=== PATIENT | female | born 1965 | race Caucasian/White ===

== ENCOUNTER 2019-04-18 08:59 | Outpatient (CLI) | payer BC, SELFPAY ==
[2019-04-19 09:42] LABS: FSH 116.4 mIU/mL (See Note)
== END 2019-04-18 09:19 ==
PROVIDERS: PCP Family Medicine; Visit Provider Nurse Practitioner Women's Health
DX: N95.1 Menopausal and female climacteric states (principal)
CPT/HCPCS: 36415; 83001

== ENCOUNTER 2019-04-18 09:41 | Outpatient (REF) | payer BC, SELFPAY ==
--- NOTE | 2019-04-18 08:50 | PAPFT_PTH ---
PATIENT: Romana Hilton LOC: [facility] U#:[id number] AGE/SX: 53/F ROOM: RE04/18/[address]: Karina Patino NP : 1965 BED: DIS: 04/18/2019 SPEC #: [id number] RECD: 04/18/19 12:49 STATUS: KELLY REPrema #: [id number] DEREK: 04/18/19 08:[address]: Karina Patino NP DEPT: [facility] Cytology RECD BY: Annie Dickson ENTERED: 04/18/19 12:49 SP TYPE: PAPFT OTHR DR: Guanako Gutierrez Tissues: 1 - CX/ENDOCX FOR PAP SMEARS Procedures: PAP THIN PREP/[facility] Screening HPV DNA PROBE Comments: [id number] (CHLAMYDIA/GC)
[2019-04-19 16:41] LABS: Chlamydia Result Negative (Negative); GC Result Negative (Negative)
== END 2019-04-18 10:01 ==
LOC: LBN 09:41
PROVIDERS: PCP Family Medicine; Visit Provider Nurse Practitioner Women's Health
DX: Z12.4 Encounter for screening for malignant neoplasm of cervix (principal); Z11.51 Encounter for screening for human papillomavirus (HPV)
CPT/HCPCS: 87491; 87591; 88142; 87624

== ENCOUNTER → 2025-03-05 13:22 | Outpatient (CLI) | payer BC, SELFPAY ==
--- NOTE | 2025-03-05 | DI.MRI_ITS ---
Exam(s) MR UPPER JOINT RT WO EXAM: MR UPPER JOINT RT WO CLINICAL HISTORY: PAIN RT SHOULDER, M25.511,OTHER CHRONIC PAIN, G89.29 TECHNIQUE: Multiplanar multisequence MRI of the right shoulder was performed. COMPARISON: CR CHEST 2 VIEWS PA,LAT from 12/26/2014 FINDINGS: MARROW:There is no evidence of fracture, Hill-Sachs deformity, nor ominous osseous lesions. There is some bone edema evident in the lateral aspect of the greater tuberosity. Are subtle marrow findings which may indicate prior rotator cuff surgery GLENOHUMERAL JOINT: There is mild thinning of articular cartilage. No osteophytes. There are no degenerative subarticular cysts. No significant joint effusion no obvious loose intra-articular bodies. ROTATOR CUFF MECHANISM: AC JOINT/ACROMIUM: There is moderate degenerative change in the acromioclavicular joint which is causing some impingement upon the supraspinatus.. There is no evidence of os acromiale. Supraspinatus: There is signal abnormality in the supraspinatus tendon above the greater tuberosity which has the appearance of a high-grade partial-thickness tear. There is some overlying edema in the subacromial-subdeltoid bursa. There is no retraction of the musculotendinous junction and no muscle atrophy. Infraspinatus: The above described signal abnormality is in the conjoined region of the supra/infraspinatus. The majority of the infraspinatus tendon appears intact and there is no atrophy of the muscle belly. Teres Minor: Intact. No evidence of tear nor muscle atrophy. Subscapularis/anterior cuff: Intact. No abnormal signal at the level of the multipennate insertional fibers. No significant tear nor atrophy. BICEPS TENDON: Exhibits normal position within the intertubercular groove. No evidence of tear. No tenosynovitis. LABRUM: No labral tear identified. No evidence of paralabral cyst. There is no evidence of avulsion of the anterior-inferior labrum, capsule, inferior glenohumeral ligament complex nor disruption of the scapular periosteum to suggest the presence of a Bankart lesion. QUADRILATERAL SPACE: No evidence of mass in the region of the axillary nerve and dorsal circumflex humeral vessels. Visualized triceps muscle at this level appears unremarkable. IMPRESSION: 1. There is signal abnormality consistent with high-grade partial thickness tear of the supraspinatus tendon just above the greater tuberosity in the conjoined region area. There is no retraction of the musculotendinous junction. There is is small amount of fluid and edema in the subacromial-subdeltoid bursa space. 2. Other components of the rotator cuff musculature appear intact 3. There are mild degenerative changes in the glenohumeral joint. There are no labral tears evident and the biceps tendon appears intact. There are moderate degenerative changes in the acromioclavicular joint causing element of impingement. DATA REPOSITORY:
--- NOTE | 2025-03-05 | DI.MRI_ITS ---
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 COMPARISON: No exams were available for comparison FINDINGS: CERVICOMEDULLARY JUNCTION: Intact with no evidence of cerebellar tonsillar ectopia. No obvious abnormality of the odontoid process. No evidence of Chiari 1 malformation. CERVICAL SPINAL CORD: There is no abnormal signal in the cervical spinal cord and no evidence of focal cord atrophy nor focal cord swelling. OSSEOUS:There are no cervical fractures evident. No significant osseous lesions in the cervical vertebrae. However, there is mild reversal of the normal curvature of the cervical spine evident. INDIVIDUAL LEVELS: C2-3: No disc herniation nor central canal stenosis. No foraminal stenosis. No facet arthropathy. C3-4: Normal disc height. However, there is a central subligamentous disc herniation which extends posteriorly 3.5 mm and is 10 mm wide. This disc protrusion also extends cephalad behind the C3 vertebral body for a distance 5 mm. The disc protrusion indents the anterior thecal sac and contacts the a nterior aspect of the cervical spinal cord at this level. There is, however, no abnormal signal in the cervical cord at this level. The facet joints at this level exhibit mild degenerative change on the right side and no significant degenerative change on the left side. There is mild right-sided foraminal stenosis. No left-sided foraminal stenosis. C4-5: There is moderate narrowing of the disc space. Posteriorly there is broad relatively symmetrical annular bulging which effaces the anterior thecal sac but not the spinal cord. The AP measurement of the canal at this level is 10 mm.There is mild bilateral facet arthropathy at this level. There are no significant Luschka joint osteophytes. There is mild bilateral foraminal stenosis. C5-6: There is chronic advanced disc space narrowing at this level and anterior osseous lipping. Posteriorly there is symmetrical annular bulging which effaces the thecal sac. The AP measurement of the canal is 8.5 mm at this level with mild central spinal canal stenosis. There is no abnormal signal in the spinal cord at this level. There are mild-moderate degenerative changes in both facet joints at this level. Also small bilateral Luschka joint osteophytes. There is mild-moderate bilateral foraminal stenosis. C6-7: There is mild disc space narrowing at this level. There is no disc herniation or central spinal canal stenosis. No Luschka joint osteophytes at this level. Mild degenerative changes in the facet joints but no evidence of foraminal stenosis on either side at this level. C7-T1: No disc herniation nor central canal stenosis. No facet arthropathy.No foraminal stenosis. IMPRESSION: 1. There is multilevel degenerative disc disease with significant findings as described above at C3-4, C4-5, and C5-6 levels. C6-7 level appears unremarkable. There is a central subligamentous disc herniation at C3-4 level which also extends superiorly behind the posterior aspect of C3 vertebral body for a distance of 5 mm. Central canal dimensions are lower normal at this level and there is mild right-sided foraminal stenosis. 2. At C4-5 level there is no significant central canal stenosis but there is mild bilateral foraminal stenosis related to some mild bilateral facet arthropathy. 3. At C5-6 level there is chronic advanced disc space narrowing and mild central canal stenosis, mild-moderate facet arthropathy and small bilateral Luschka joint osteophytes resulting in mild-moderate bilateral foraminal stenosis. 4. There is no abnormal signal in the cervical spinal cord and no evidence of syringomyelia, focal cord atrophy, nor focal cord swelling. DATA REPOSITORY:
== END ==
LOC: DI 13:22
PROVIDERS: PCP Family Medicine; Visit Provider Family Medicine
DX: G95.9 Disease of spinal cord, unspecified (principal); M25.511 Pain in right shoulder; G89.29 Other chronic pain
CPT/HCPCS: 72141; 73221